=== PATIENT | female | born 1945 | race Caucasian/White ===

== ENCOUNTER 2017-10-04 12:28 | Emergency (ER) | payer MEDICARE, OTHER ==
[~2017-10-04] VITALS: Ht 167.6 cm; Wt 74.4 kg
[~2017-10-04 12:28] MED LIST: ACHD5005 PO; GLYB5TAB6 PO; LISI-552 PO; METF500T5 PO
--- NOTE | 2017-10-04 13:42 | ED Lower Extremity ---
General Chief Complaint: Lower Extremity Stated Complaint: LT KNEE PAIN Nursing Triage Note: TO W/C ACCOMPIED BY FAMILY. PATIENT REPORTS FELT POP IN KNEE 2 WEEKS AGO HAS HAD PAIN SINCE WHEN WALKING. L LEG SWELLING NOTED,BUT PATIENT REPORT THAT THAT LEG HAS BEEN SWOLLEN FOR 1 YEAR. PAIN ONLY WHEN WALKING. Nursing Sepsis Screen: No Definite Risk Source: patient Exam Limitations: no limitations History of Present Illness Date Seen by Provider: Oct 04, 2017 Time Seen by Provider: 13:40 Initial Comments To ER with reports of left lower extremity pain. This is been present bothering her for about a week she's had some increased swelling as well. She's had left leg pain at the knee intermittently for about a year. She states she wakes up with pain in the mornings but after a few steps the pain goes away. She denies any known injury. Onset: just prior to arrival Severity: moderate Pain/Injury Location: left knee Modifying Factors: Worse With Movement Allergies and Home Medications Allergies Coded Allergies: No Known Drug Allergies (Unverified , 09/28/15) Home Medications Glyburide 5 Mg Tablet, 5 MG PO UD, (Reported) Lisinopril 20 Mg Tablet, 20 MG PO DAILY, (Reported) Metformin HCl 500 Mg Tablet, 500 MG PO TID, (Reported) Patient Home Medication List Home Medication List Reviewed: Yes Constitutional: see HPI EENTM: see HPI Respiratory: no symptoms reported Cardiovascular: no symptoms reported Genitourinary: no symptoms reported Musculoskeletal: see HPI Skin: no symptoms reported Psychiatric/Neurological: No Symptoms Reported Past Pstuxty-Kivnhn-Wkkiui Hx Patient Social History Alcohol Use: Denies Use Recreational Drug Use: No Recent Foreign Travel: No Contact w/Someone Who Travel: No Recent Infectious Disease Expo: No Recent Hopitalizations: No Seasonal Allergies Seasonal Allergies: No Past Medical History Surgeries: Yes Section Respiratory: No Cardiac: Yes Hypertension Neurological: No Gastrointestinal: No Musculoskeletal: No Endocrine: Yes Diabetes, Non-Insulin dep Cancer: No Psychosocial: No Family Medical History Cancer Physical Exam Vital Signs Vital Signs - First Documented 10/04/17 13:01 Temp 98.3 Pulse 79 Resp 18 B/P (MAP) 173/83 (113) Pulse Ox 96 Capillary Refill : Less Than 3 Seconds Height, Weight, BMI Height: 5'6.00" Weight: 164lbs. 0.0oz. [id number]; 26.6 BMI Method:Stated General Appearance: WD/WN, no apparent distress HEENT: PERRL/EOMI, normal ENT inspection Neck: non-tender, full range of motion Respiratory: no respiratory distress, no accessory muscle use Hips: left hip non-tender, left hip normal inspection, left hip normal range of motion Legs: left leg non-tender, left leg normal inspection, left leg normal range of motion Knees: left knee pain, left knee other (noted erythema ecchymosis swelling or effusion) Ankles: left ankle other (1-2+ pitting edema left lower extremity, only trace edema on the right) Neurologic/Psychiatric: alert, normal mood/affect, oriented x 3 Skin: normal color, warm/dry Progress/Results/Core Measures Results/Orders My Orders Orders - JUSTO GUERRERO APRN Us Venous Lower Ext Lt (10/04/17 13:39) Knee, Left, 3 Views (10/04/17 13:39) Vital Signs/I&O 10/04/17 13:01 Temp 98.3 Pulse 79 Resp 18 B/P (MAP) 173/83 (113) Pulse Ox 96 Blood Pressure Mean: 113 Departure Communication (Admissions) venous ultrasound negative for dvt. Impression Primary Impression: Left leg swelling Additional Impression: Osteoarthritis of left knee Disposition: HOME, SELF-CARE Condition: Stable Departure-Patient Inst. Decision time for Depature: 14:54 Referrals: OSMAN RIOS DO (PCP/Family) Primary Care Physician Patient Instructions: Osteoarthritis Add. Discharge Instructions: 1. Retun to ER for any concerns 2. Follow up with Dr Rios next week All discharge instructions reviewed with patient and/or family. Voiced understanding. JUSTO GUERRERO APRN Oct 04, 2017 13:42
--- NOTE | 2017-10-04 14:46 | Diagnostic Imaging Report ---
PROCEDURE: US left lower extremity venous. TECHNIQUE: Multiple real-time grayscale images were obtained over the left lower extremity in various projections. Additional duplex Doppler and color Doppler images were also obtained. INDICATION: Left lower extremity swelling and pain. COMPARISON: None. FINDINGS: Visualized deep and superficial venous system is patent. There is no mass or DVT. IMPRESSION: Negative left lower extremity venous Doppler. Dictated by: Dictated on workstation # [id number]
--- NOTE | 2017-10-04 14:54 | Diagnostic Imaging Report ---
INDICATION: Left knee pain. COMPARISON: None. EXAMINATION: Three views of the left knee were obtained. FINDINGS: Mild/moderate tricompartment degenerative joint disease. There is no fracture, dislocation or joint effusion. IMPRESSION: Degenerative joint disease without fracture. Dictated by: Dictated on workstation # [id number]
[2017-10-04] MEDS ORDERED: TRAM-42 PO (15:13)
[2017-10-04 15:26] VITALS: BP 173/83
== END 2017-10-04 15:20 | disposition home or self-care (01) ==
LOC: EDUNIT# 12:28 → ER 12:29
DX: M17.12 Unilateral primary osteoarthritis, left knee (principal); M79.89 Other specified soft tissue disorders; I10 Essential (primary) hypertension; E11.9 Type 2 diabetes mellitus without complications; Z98.890 Other specified postprocedural states; Z79.84 Long term (current) use of oral hypoglycemic drugs
CPT/HCPCS: 73562

== ENCOUNTER 2018-08-21 23:30 | Emergency (ER) | payer MEDICARE, OTHER ==
[~2018-08-21] VITALS: Ht 165.1 cm; Wt 77.1 kg
[~2018-08-21 23:30] MED LIST changes: +METF-397 PO; -METF500T5 PO; +TRAM-42 PO
[2018-08-22] MEDS ORDERED: BSS 15 ML ONE (01:21)
[2018-08-22] MEDS ORDERED: BSS 15 ML IR ONE (01:30)
[2018-08-22] MEDS ORDERED: FLUORESCEIN (FLUOR-I-STRIPS) 1 MG STRP OU ONE (01:30)
[2018-08-22] MEDS ORDERED: TETRACAINE 0.5% OPHTH SOLN 4 ML BTL (SINGLE DOSE ONLY) OU ONE (01:30)
--- NOTE | 2018-08-22 01:41 | ED EENT ---
History of Present Illness General Chief Complaint: Eye Problems Stated Complaint: LEFT EYE PAIN Nursing Triage Note: PATIENT STATES SHE WAS USING THE WEEDEATER EARLIER THIS EVENING AND THOUGHT SHE GOT SOMETHING IN HER EYE Source: patient History of Present Illness Date Seen by Provider: Aug 22, 2018 Time Seen by Provider: 01:15 Initial Comments PT ARRIVES VIA POV FROM HOME WITH DAUGHTER IN LAW PT STATES SHE WAS "WEED EATING" AROUND 1830, AND FELT SOMETHING GET IN HER LEFT EYE PT WAS NOT WEARING ANY PROTECTIVE EYE WEAR AT THE TIME, DOES NOT NORMALLY WEAR GLASSES NO VISION CHANGES NO DRAINAGE FROM EYE NO FEVER OR RECENT ILLNESS NO HISTORY OF SIMILAR PT STATES SHE FLUSHED IT OUT WITH WATER AND WITH UNKNOWN OTC EYE DROPS STATES EYE FEELS MUCH BETTER ON ARRIVAL TO ER, AND WAS ABLE TO REMOVE SOME "DIRT" FROM EYE PRIOR TO ARRIVAL DENIES ANY PRIOR EYE PROBLEMS, OTHER THAN HAVING CATARACT SURGERY FRONT DESK: DR. MAGALLON Allergies and Home Medications Allergies Coded Allergies: No Known Drug Allergies (Unverified , 09/28/15) Home Medications Glyburide 5 Mg Tablet, 5 MG PO UD, (Reported) Lisinopril 20 Mg Tablet, 20 MG PO DAILY, (Reported) Metformin HCl 500 Mg Tablet, 500 MG PO TID, (Reported) Tramadol HCl 50 Mg Tablet, 50 MG PO Q6H PRN for PAIN-MODERATE Prescribed by: JUSTO GUERRERO on 10/04/17 1513 Patient Home Medication List Home Medication List Reviewed: Yes Review of Systems Review of Systems Constitutional: no symptoms reported Eyes: See HPI Past Tvqdqqk-Ctugmo-Jifljq Hx Patient Social History Alcohol Use: Denies Use Recreational Drug Use: No Smoking Status: Never a Smoker 2nd Hand Smoke Exposure: No Recent Foreign Travel: No Contact w/Someone Who Travel: No Recent Infectious Disease Expo: No Recent Hopitalizations: No Seasonal Allergies Seasonal Allergies: No Past Medical History Surgeries: Yes (BILATERAL CATARACT SURGERY) Section, Eye Surgery, Gallbladder Respiratory: No Cardiac: Yes Hypertension Neurological: No : No CLEATER History: Menopausal Genitourinary: No Gastrointestinal: No Musculoskeletal: No Endocrine: Yes Diabetes, Non-Insulin dep HEENT: Yes Cataract Cancer: No Psychosocial: No Integumentary: No Blood Disorders: No Family Medical History Cancer Physical Exam Vital Signs Vital Signs - First Documented 08/21/18 23:35 Temp 98.4 Pulse 90 Resp 18 B/P (MAP) 148/73 (98) Pulse Ox 98 Height, Weight, BMI Height: 5'5.00" Weight: 170lbs. 0oz. 77.180633ab; 26.6 BMI Method:Stated General Appearance: WD/WN, no apparent distress, other (PT CONSTANTLY RUBBING L EFT EYE) Eyes: right eye normal inspection; left eye conjunctival inflammation, left eye other (N FOREIGN BODY OR ABRASION NOTED. ) Neurologic/Psychiatric: household personal assistant II-XII nml as tested, no motor/sensory deficits, alert, oriented x 3 Skin: normal color, warm/dry Procedures/Interventions Eye : Location: left eye Anesthesia (gtts): Tetracaine Progress/Procedure Conclusion FLUORESCEIN STAIN--NO UPTAKE AND NO FOREIGN BODY NOTED NO DRAINAGE OR EXCESSIVE TEARING Progress/Results/Core Measures Results/Orders My Orders Orders - KELECHI FINCH DO Tetracaine 0.5% Ophth Dorothy Sdv (Tetracai (08/22/18 01:30) Fluorescein Strips (Qofls-N-Epmwet) (08/22/18 01:30) Balanced Salt Irrigation Soln (Bss Irrig (08/22/18 01:30) Balanced Salt Irrigation Soln (Bss Irrig (08/22/18 01:21) Rx-Ofloxacin 0.3% Ophth Soln (Rx-Ocuflox (08/22/18 04:00) Medications Given in ED Vital Signs/I&O Blood Pressure Mean: 98 Departure Impression Primary Impression: left eye CONJUNCTIVAL INFLAMMATION Additional Impression: REPORTED FOREIGN BODY IN LEFT EYE Disposition: 01 HOME, SELF-CARE Condition: Stable Departure-Patient Inst. Referrals: OSMAN RIOS DO (PCP/Family) Primary Care Physician Patient Instructions: Conjunctivitis (Pinkeye) (DC), Corneal Abrasion (DC), How to Use Eye Drops Add. Discharge Instructions: USE EYE DROPS PRESCRIBED DO NOT RUB EYE TYLENOL AND MOTRIN NEEDED FOR PAIN FOLLOW UP WITH YOUR EYE DR IN 2-3 DAYS IF NO BETTER, RETURN TO ER IF WORSE All discharge instructions reviewed with patient and/or family. Voiced understanding. KELECHI FINCH DO Aug 22, 2018 01:41
[2018-08-22 02:20] VITALS: BP 138/76
[2018-08-22] MEDS ORDERED: RX-OFLOXACIN 0.3% OPHTH SOLN 5 ML OP SCH (04:00)
== END 2018-08-22 02:20 | disposition home or self-care (01) ==
LOC: EDUNIT# 23:30 → ER 23:32
DX: T15.02XA Foreign body in cornea, left eye, initial encounter (principal); H10.9 Unspecified conjunctivitis; I10 Essential (primary) hypertension; E11.9 Type 2 diabetes mellitus without complications; Z98.41 Cataract extraction status, right eye; Z98.42 Cataract extraction status, left eye
CPT/HCPCS: 99283

== ENCOUNTER → 2022-03-14 | Outpatient (CLI) | payer MEDICARE, OTHER ==
[~2022-03-14] MED LIST changes: +GLBR5T PO; -GLYB5TAB6 PO; -LISI-552 PO; +LISI20TA26 PO
[2022-03-14 11:29] LABS: BILIRUBIN,URINE NEGATIVE (NEGATIVE); CLARITY,URINE CLEAR; COLOR,URINE YELLOW; GLUCOSE, URINE (UA) 1+ (NEGATIVE); KETONES,URINE NEGATIVE (NEGATIVE); LEUKOCYTE ESTERASE ,URINE NEGATIVE (NEGATIVE); NITRITE,URINE NEGATIVE (NEGATIVE); PROTEIN,URINE TRACE (NEGATIVE)
[2022-03-14 11:32] LABS: BASOPHILS % (AUTO) 1 % (0-10); EOSINOPHILS # (AUTO) 0.1 10^3/uL (0.0-0.3); EOSINOPHILS % (AUTO) 1 % (0-10); HEMATOCRIT 43 % (35-52); HEMOGLOBIN 14.6 g/dL (11.5-16.0); LYMPHOCYTES # (AUTO) 1.7 10^3/uL (1.0-4.0); LYMPHOCYTES % (AUTO) 23 % (12-44); MEAN CORPUSCULAR HEMOGLOBIN 31 pg (25-34); MEAN CORPUSCULAR HGB CONC 34 g/dL (32-36); MEAN CORPUSCULAR VOLUME 90 fL (80-99); MEAN PLATELET VOLUME 9.7 fL (9.0-12.2); MONOCYTES # (AUTO) 0.5 10^3/uL (0.0-1.0); MONOCYTES % (AUTO) 7 % (0-12); NEUTROPHILS # (AUTO) 4.9 10^3/uL (1.8-7.8); NEUTROPHILS % (AUTO) 68 % (42-75); PLATELET COUNT 183 10^3/uL (130-400); WHITE BLOOD COUNT 7.2 10^3/uL (4.3-11.0)
[2022-03-14 11:56] LABS: BILIRUBIN,TOTAL 0.9 MG/DL (0.1-1.0); CALCIUM 9.8 MG/DL (8.5-10.1); CREATININE SERUM 1.04 MG/DL (0.60-1.30); POTASSIUM 3.7 MMOL/L (3.6-5.0); TOTAL PROTEIN 7.3 GM/DL (6.4-8.2)
== END ==
LOC: LAB 11:04
PROVIDERS: ATTEND Family Medicine
DX: L03.116 Cellulitis of left lower limb (principal); E11.9 Type 2 diabetes mellitus without complications; I10 Essential (primary) hypertension
CPT/HCPCS: 36415; 80053; 80061; 81002; 83036; 85025

== ENCOUNTER → 2022-03-20 | Outpatient (CLI) | payer MEDICARE, OTHER ==
--- NOTE | 2022-03-20 15:00 | Diagnostic Imaging Report ---
PROCEDURE: US left lower extremity venous. TECHNIQUE: Multiple real-time grayscale images were obtained over the left lower extremity in various projections. Additional duplex Doppler and color Doppler images were also obtained. INDICATION: Left leg redness and swelling. FINDINGS: There is no evidence of left lower extremity DVT. Left lower extremity deep venous system shows normal compressibility with normal response to augmentation and Valsalva. No fluid collection or mass is detected. IMPRESSION: No evidence of left lower extremity DVT. Dictated by: Dictated on workstation # [id number]
== END ==
LOC: RAD 14:02
PROVIDERS: ATTEND Family Medicine
DX: M79.89 Other specified soft tissue disorders (principal); L53.9 Erythematous condition, unspecified